=== PATIENT | male | born 1970 | race Caucasian/White ===

== ENCOUNTER 2016-12-27 13:59 | Outpatient (CLI) | payer MEDICAID, OTHER | END 2016-12-27 14:00 | disposition home or self-care (01) | DX: M25.561 Pain in right knee (principal) ==

== ENCOUNTER 2019-10-29 16:52 | Emergency (ER) | payer MEDICAID ==
[2019-10-29 17:06] VITALS: BP 119/78
[2019-10-29] MEDS ORDERED: PROPARACAINE 0.5% OPHTH DROPS 15 ML LEFTEYE STA (17:07)
--- NOTE | 2019-10-29 17:28 | ED Physician Documentation ---
PD HPI OPHTHO - Stated complaint Stated Complaint: LT EYE INJURY/SCRATCH - Chief complaint Chief Complaint: Heent - History obtained from History obtained from: Patient (He was working outside this afternoon, trimming some branches and one went into his left eye. There is no visual deficit. Pain is moderate.) - History of Present Illness Timing - onset: Other Review of Systems Constitutional: denies: Fever, Chills Eyes: reports: Discharge, Irritation. denies: Loss of vision, Decreased vision, Photophobia Ears: denies: Loss of hearing, Ear pain PD PAST MEDICAL HISTORY - Past Medical History Past Medical History: Yes Endocrine/Autoimmune: HyPOthyroidism - Past Surgical History Past Surgical History: No - Present Medications Home Medications: Ambulatory Orders Medication Instructions Recorded Confirmed Erythromycin Base [Erythromycin 1 appful OP 5XD 7 Days #1 oint...g. 10/29/19 Ophthalmic Ointment] Hydrocodone/Acetaminophen 1 - 2 each PO Q6H PRN #7 tablet 10/29/19 [Hydrocodon-Acetaminophen 5-325] Levothyroxine [Synthroid] mcg PO QDAC 10/29/19 - Allergies Allergies/Adverse Reactions: Allergies Allergy/AdvReac Type Severity Reaction Status Date / Time No Known Drug Allergies Allergy Verified 10/29/19 17:05 - Social History Does the pt smoke?: No Smoking Status: Never smoker Does the pt drink ETOH?: No Does the pt have substance abuse?: No - Immunizations Immunizations are current?: Yes PD ED PE NORMAL - Vitals Vital signs reviewed: Yes - General General: Alert and oriented X 3, No acute distress - HEENT HEENT: PERRL, EOMI, Other (No left eye foreign body seen, there is a large Inferior corneal abrasion with negative Aline sign) - Neuro Neuro: Alert and oriented X 3, Normal speech Results - Vitals Vitals: Vital Signs - 24 hr 10/29/19 17:04 Temperature 37.2 C Heart Rate 82 Respiratory 16 Rate Blood Pressure 119/78 O2 Saturation 99 Oxygen O2 Source Room air Departure - Departure Disposition: 01 Home, Self Care Clinical Impression: Left corneal abrasion Qualifiers: Encounter type: initial encounter Qualified Code(s): S05.02XA - Injury of conjunctiva and corneal abrasion without foreign body, left eye, initial encounter Condition: Good Record reviewed to determine appropriate education?: Yes Instructions: ED Eye Injury Corneal Abrasion Follow-Up: Brice Kathleen MD [Provider Admit Priv/Credential] - Within 3 Days Prescriptions: Erythromycin Base [Erythromycin Ophthalmic Ointment] 1 appful OP 5XD 7 Days #1 oint...g. Hydrocodone/Acetaminophen [Hydrocodon-Acetaminophen 5-325] 1 - 2 each PO Q6H PRN #7 tablet PRN Reason: pain
== END 2019-10-29 17:47 | disposition home or self-care (01) ==
LOC: ED 16:52
DX: S05.02XA Injury of conjunctiva and corneal abrasion without foreign body, left eye, initial encounter (principal); W22.8XXA Striking against or struck by other objects, initial encounter; Y93.H2 Activity, gardening and landscaping
CPT/HCPCS: 99282; 99283; J3490